=== PATIENT | male | born 1965 | race Caucasian/White ===

== ENCOUNTER 2019-12-22 23:04 | Emergency (ER) | payer OTHER ==
[~2019-12-22] VITALS: Ht 172.7 cm; Wt 85.7 kg
--- NOTE | 2019-12-22 23:20 | NUR ---
Dr. Xavier at bedside for MSE
--- NOTE | 2019-12-22 23:42 | NUR ---
Patient taken to CT scan in stable condition
--- NOTE | 2019-12-22 23:53 | NUR ---
Patient back from CT scan
[2019-12-22 23:57] LABS: CREATININE 1.2 mg/dL (0.6-1.3); POTASSIUM 3.7 mmol/L (3.5-5.1)
[2019-12-22 23:58] LABS: BASOPHILS # (AUTO) 0.1 K/uL (0.0-8.0); BASOPHILS % (AUTO) 0.7 % (0.0-2.0); EOSINOPHILS # (AUTO) 0.2 K/uL (0.0-0.7); EOSINOPHILS % (AUTO) 2.1 % (0.0-7.0); HEMATOCRIT 47.9 % (36.7-47.1); HEMOGLOBIN 16.7 g/dL (12.5-16.3); LYMPHOCYTES # (AUTO) 2.9 K/uL (20.0-40.0); LYMPHOCYTES % (AUTO) 38.1 % (20.5-51.5); MEAN CORPUSCULAR HEMOGLOBIN 32.9 uug (23.8-33.4); MEAN CORPUSCULAR HGB CONC 35 g/dL (32.5-36.3); MEAN CORPUSCULAR VOLUME 94.2 fL (73.0-96.2); MONOCYTES # (AUTO) 0.9 K/uL (2.0-10.0); MONOCYTES % (AUTO) 11.1 % (0.0-11.0); NEUTROPHILS # (AUTO) 3.7 K/uL (1.8-8.9); PLATELET COUNT (AUTO) 245 K/uL (152-348); RED BLOOD CELL COUNT(AUTO) 5.09 MIL/uL (4.06-5.63); WHITE BLOOD COUNT (AUTO) 7.7 K/uL (3.6-10.2)
[2019-12-23 00:09] LABS: BILIRUBIN,DIRECT 0.1 mg/dL (0.0-0.2); BILIRUBIN,TOTAL 0.5 mg/dL (0.2-1.0); TOTAL PROTEIN, SERUM 7.1 g/dL (6.4-8.2)
--- NOTE | 2019-12-23 00:39 | NUR ---
Patient discharged to home in stable conditon. Written and verbal after care instructions given. Patient verbalizes understanding of instructions. Patient ambulating with steady gait
[2019-12-23 00:42] VITALS: BP 132/86
== END 2019-12-23 00:39 | disposition home or self-care (01) ==
LOC: ER 23:06
DX: R10.9 Unspecified abdominal pain (principal); R19.7 Diarrhea, unspecified; E78.5 Hyperlipidemia, unspecified; Z88.0 Allergy status to penicillin; Z79.899 Other long term (current) drug therapy
CPT/HCPCS: 36415; 85025; 85730; A4663